=== PATIENT | female | born 1935 | race Caucasian/White ===

== ENCOUNTER 2019-01-29 09:13 | Day surgery (SDC) | payer MEDICARE ==
[2019-01-28 08:41] VITALS: BMI 20.7
[~2019-01-29 09:13] MED LIST: LACTATED RINGERS 1,000 ML IV SCH; LIDOCAINE 1% 20 ML VIAL (10MG/ML) FOR IV START INTRADERMA PRN
[2019-01-29 09:51] VITALS: TEMP 98.1
[2019-01-29 09:57] LABS: Glucose,Whole Blood 108 mg/dL (75-99)
[2019-01-29] MEDS ORDERED: LIDOCAINE 1% INJ 10MG/ML (20 ML MDV) ONE (10:21)
[2019-01-29] MEDS ORDERED: PROPOFOL 10 MG/ML 20 ML VIAL IV ONE (10:21)
--- NOTE | 2019-01-29 10:53 | P.PCN ---
Date of Procedure: 01/29/19 Procedure(s) Performed: BRIEF HISTORY: Patient is a 83-year-old pleasant female, scheduled for an elective colonoscopy as a part of evaluation of positive cologuard on recent stool testing. Her last colonoscopy was 15 years ago. PROCEDURE PERFORMED: Colonoscopy with snare polypectomy and Endo Clip placement. PREOPERATIVE DIAGNOSIS: Positive Cologuard IV sedation per Anesthesia. PROCEDURE: After informed consent was obtained, the patient, was brought into the endoscopy unit. IV sedation was administered by Anesthesia under continuous monitoring. Digital rectal examination was normal. Initially the Olympus CF-160 flexible video colonoscope was then inserted in the rectum, gradually advanced into the cecum without any difficulty. Careful examination was performed as the scope was gradually being withdrawn. Ileocecal valve and the appendiceal orifice were visualized and appeared normal. Prep was excellent. Mucosa of the cecum appeared normal. Regular with a 2 polyps measuring 1 cm in size both of which were broad-based removed by snare polypectomy. Rest of the ascending colon, transverse colon appeared normal. In the proximal descending colon at 50 cm from the anal verge there was a 2 cm flat polyp that was removed by piecemeal snare polypectomy followed by Endo Clip placement. Rest of the, descending colon, sigmoid colon, and rectum appeared normal. Scattered sigmoid diverticulosis. Retroflexion was performed in the rectum and no lesions were seen. The patient tolerated the procedure well. IMPRESSION: 1 cm broad-based ascending colon polyp status post polypectomy 2 cm flat proximal descending colon polyp status post piecemeal snare polypectomy followed by Endo Clip placement Scattered sigmoid diverticulosis. RECOMMENDATIONS: Findings of this examination were discussed with the patient as well as her family. She was advised to follow with the biopsy results. If the biopsy shows adenoma, he can have a repeat colonoscopy in 3 years..
[2019-01-29 11:00] VITALS: RESP 18
[2019-01-29 11:37] VITALS: BP 154/76; PULSE 81
== END 2019-01-29 11:37 | disposition home or self-care (01) ==
LOC: ORWHC2ENDO 09:13
PROVIDERS: ATTEND Internal Medicine Gastroenterology
DX: D12.2 Benign neoplasm of ascending colon (principal); D12.4 Benign neoplasm of descending colon; K57.30 Diverticulosis of large intestine without perforation or abscess without bleeding; E78.5 Hyperlipidemia, unspecified; E11.9 Type 2 diabetes mellitus without complications; Z86.73 Personal history of transient ischemic attack (TIA), and cerebral infarction without residual deficits; Z97.4 Presence of external hearing-aid; F17.200 Nicotine dependence, unspecified, uncomplicated; Z79.1 Long term (current) use of non-steroidal anti-inflammatories (NSAID); Z79.84 Long term (current) use of oral hypoglycemic drugs; Z79.899 Other long term (current) drug therapy
CPT/HCPCS: 45385; 88305; J2001; J2704; 45382

== ENCOUNTER 2019-07-07 21:14 | Emergency (ER) | payer MEDICARE ==
[2019-07-07 21:23] VITALS: RESP 18
[2019-07-07] MEDS ORDERED: ASPIRIN 81 MG PO STA (21:39)
[2019-07-07] MEDS ORDERED: SODIUM CHLORIDE 0.9% 1,000 ML IV STA (21:39)
[2019-07-07 22:10] LABS: Basophils # (A) 0.1 k/uL (0-0.2); Basophils % (A) 1 %; Eosinophils # (A) 0.3 k/uL (0-0.7); Eosinophils % (A) 4 %; HCT 35.8 % (34.0-46.0); HGB 11.5 gm/dL (11.4-16.0); Lymphocytes # (A) 2.9 k/uL (1.0-4.8); Lymphocytes % (A) 34 %; MCH 29.1 pg (25.0-35.0); MCHC 32.2 g/dL (31.0-37.0); MCV 90.3 fL (80.0-100.0); Mean Platelet Volume 6.6; Monocytes # (A) 0.5 k/uL (0-1.0); Monocytes % (A) 6 %; Neutrophils # (A) 4.5 k/uL (1.3-7.7); Neutrophils % (A) 54 %; Platelet Count 308 k/uL (150-450); RBC 3.97 m/uL (3.80-5.40); RDW 13.9 % (11.5-15.5); WBC 8.4 k/uL (3.8-10.6)
[2019-07-07 22:21] LABS: Partial Thromboplastin Time 23.9 sec (22.0-30.0); Prothrombin Time 10.6 sec (9.0-12.0)
[2019-07-07 22:23] LABS: Albumin 4.3 g/dL (3.5-5.0); Magnesium 1.9 mg/dL (1.6-2.3); Potassium 4.5 mmol/L (3.5-5.1); Total Bilirubin 0.3 mg/dL (0.2-1.3); Total Protein 7.1 g/dL (6.3-8.2)
--- NOTE | 2019-07-07 22:40 | XR ---
EXAMINATION TYPE: XR chest 2V DATE OF EXAM: 07/07/2019 COMPARISON: NONE HISTORY: Chest pain TECHNIQUE: Frontal and lateral views of the chest are obtained. FINDINGS: Heart is normal. Lungs are clear of infiltrate. Thoracic aorta is atheromatous. There are chest leads. Costophrenic angles are clear. Bony thorax is intact. IMPRESSION: No active cardiopulmonary disease. Atheromatous aorta.
--- NOTE | 2019-07-07 22:47 | ED ---
Chest Pain HPI - General Chief Complaint: Chest Pain Stated Complaint: Chest Pain Time Seen by Provider: 07/07/19 21:39 Source: patient Mode of arrival: wheelchair Limitations: no limitations - History of Present Illness Initial Comments: Christine is a pleasant 83-year-old female with no history of coronary artery disease, patient does have a history of aortic stenosis. Patient has followed with her primary care and Dr. Nugent cardiology for this in the past. Patient was seen by her primary care physician yesterday. Patient reports that he palpated her chest and told her that if she experienced any chest pain she needed to come to the emergency department. Patient reports she's intermittently experience chest pain for a long period of time but never thought anything of it however this afternoon she had some sharp pains in her right side of her chest, she thinks it may be from her exam yesterday. However after that she had some sharp pains on the left side of her chest and the lateral ribs. These pains came and went resolved around 6:30 PM. The patient contacted her daughter who had to drive from nearly an hour away to see the patient and then brought her to the ER. Upon arrival patient is chest pain-free. Patient denies any exertional symptoms, lightheadedness or palpitations. Patient does admit that she did a lot of laundry was carrying laundry baskets today. In addition the patient does participate in a golf lead as well as a bowling league. She reports she is able to golf and playful rounds of bowling without any chest pain typically. - Related Data Home Medications Medication Instructions Recorded Confirmed Cetirizine HCl [Zyrtec] 10 mg PO DAILY 01/02/18 01/29/19 Cholecalciferol (Vitamin D3) 2,000 unit PO DAILY 01/02/18 01/29/19 [Vitamin D3] Simvastatin [Zocor] 20 mg PO HS 01/02/18 01/29/19 metFORMIN HCL [Glucophage Xr] 500 mg PO DAILY 01/02/18 01/29/19 Naproxen Sodium [Aleve] 220 mg PO DIRECTED PRN 01/28/19 01/29/19 Vit C/E/Zn/Coppr/Lutein/Zeaxan 1 each PO DAILY 01/28/19 01/29/19 [Preservision Areds 2 Softgel] Wheat Dextrin [Benefiber] 1 each PO DIRECTED 01/28/19 01/29/19 Allergies Allergy/AdvReac Type Severity Reaction Status Date / Time No Known Allergies Allergy Verified 07/07/19 21:23 Review of Systems ROS Statement: Those systems with pertinent positive or pertinent negative responses have been documented in the HPI. ROS Other: All systems not noted in ROS Statement are negative. EKG Findings - EKG Comments: EKG Findings:: EKG was obtained due to complaint of chest pain, EKG was obtained at 2131, rate is 87 rhythm is sinus there is normal axis, there are normal intervals, NM 138, QRS 72, QTc is 440. There are no acute ST elevations or depressions of acute ischemia or infarction. Past Medical History Past Medical History: Cancer, Diabetes Mellitus, Hyperlipidemia Additional Past Medical History / Comment(s): HEART MURMUR, CALCIFIED HEART VALVE., STOOL TEST POSITIVE FOR BLOOD., HX OF SKIN CANCER, TIA. History of Any Multi-Drug Resistant Organisms: None Reported Past Surgical History: Appendectomy, Tonsillectomy Additional Past Surgical History / Comment(s): Wesley Cataract surgery Past Anesthesia/Blood Transfusion Reactions: No Reported Reaction Past Psychological History: No Psychological Hx Reported Smoking Status: Current every day smoker Past Alcohol Use History: None Reported Past Drug Use History: None Reported - Past Family History Mother Family Medical History: Congestive Heart Failure (CHF) Father Family Medical History: CVA/TIA Sister(s) Family Medical History: Cancer, Diabetes Mellitus, Rheumatoid Arthritis (RA) Additional Family Medical History / Comment(s): PACEMAKER, STENTS, CLL, RUPTURED ANEURYSM General Exam - General Exam Comments Initial Comments: Physical Exam GENERAL: Patient is well-developed and well-nourished. Patient is nontoxic and well- hydrated and is in no distress. HENT: Normocephalic, Atraumatic. EYES: PERRL, EOMI PULMONARY: Unlabored respirations. No audible rales rhonchi or wheezing was noted. CARDIOVASCULAR: RRR Blowing holosystolic murmur consistent with aortic stenosis ABDOMEN: Soft and nontender with normal bowel sounds. SKIN: Skin is clear with no lesions or rashes and otherwise unremarkable. : Deferred NEUROLOGIC: Patient is alert and oriented x3. Moving all extremities spontaneously MUSCULOSKELETAL: Normal extremities with adequate strength and full range of motion. No lower extremity swelling or edema. No calf tenderness. PSYCHIATRIC: Normal psychiatric evaluation. Limitations: no limitations Course Vital Signs 07/07/19 07/07/19 07/07/19 21:19 22:12 23:25 Temperature 97.8 F 98 F 98.6 F Pulse Rate 88 85 70 Respiratory 18 18 18 Rate Blood Pressure 149/64 157/61 146/54 O2 Sat by Pulse 96 99 98 Oximetry Chest Pain MDM - MDM The patient is a very healthy and active 83-year-old female with no known cardiac history. Patient had her annual physical with her primary care physician yesterday who encouraged her to come to the ER any time she experiences chest pain. Patient reports that during that exam he did palpate he r chest and applied pressure to her chest telling her that if she was having a heart attack could feel like deep pressure. Patient states that today she felt like his chest might just be a little bit sore from that. She isn't short chains in the right side of her chest earlier and called her daughter. Patient had been doing some heavy lifting including laundry basket and did make her bed. Pain was not exertional, it did not relieve with rest. Pain was not associated with any diaphoresis, lightheadedness or shortness of breath. Pain resolved prior to arrival in the emergency department however given that her primary care physician told her to be evaluated for any chest pain she decided to come to the ER. Exam the patient appears quite well she is in absolutely no distress she's not c omplaining of any pain. Vital signs are within normal limits. Her obtained and were within normal limits. Patient's chest pain had resolved 3 hours prior to arrival and her troponin remains not elevated. At this time I do not feel that repeat troponin is indicated. I offered to keep the patient in observation unit be evaluated by cardiology, considering the patient's advanced age, however chris tam would like to refuse. Patient states that she is scheduled to see her primary care physician again tomorrow because she needs get a flu shot. Told to see her clinical nursing professor in 3 weeks. Patient will discussed with her primary care physician tomorrow she needs to be seen sooner. All questions pertaining care were answered, close return parameters were discussed. Patient was discharged home in stable condition. Disposition Clinical Impression: Atypical chest pain Disposition: HOME SELF-CARE Condition: Stable Instructions (If sedation given, give patient instructions): Costochondritis (ED) Is patient prescribed a controlled substance at d/c from ED?: No Referrals: Efrain Vargas MD [Primary Care Provider] - 1-2 days
[2019-07-07 23:26] VITALS: BP 146/54; PULSE 70; TEMP 98.6
== END 2019-07-07 23:28 | disposition home or self-care (01) ==
LOC: EC 21:14
DX: R07.89 Other chest pain (principal); R01.1 Cardiac murmur, unspecified; E11.9 Type 2 diabetes mellitus without complications; E78.5 Hyperlipidemia, unspecified; F17.200 Nicotine dependence, unspecified, uncomplicated; Z79.84 Long term (current) use of oral hypoglycemic drugs; Z79.899 Other long term (current) drug therapy; Z85.828 Personal history of other malignant neoplasm of skin; Z82.49 Family history of ischemic heart disease and other diseases of the circulatory system
CPT/HCPCS: 36415; 71046; 80053; 83735; 83880; 84484; 85025; 85610; 85730; 93005; 96360; 99285

== ENCOUNTER → 2020-04-28 | Day surgery (SDC) | payer MEDICARE ==
[2020-04-25 13:38] VITALS: BMI 23.0
[~2020-04-28] MED LIST changes: +ALPRAZolam 0.25 MG TAB PO PRN; +ALPRAZolam 0.5 MG TAB PO PRN; +ASPIRIN 325 MG TAB PO ONE; +ATORVASTATIN 80 MG TAB PO ONE; +BENZOCAINE SPRAY 1 CAN TOPICAL ONE; +IOPAMIDOL-370 125ML BTL INJ ONE; +IV FLUID CONTINUATION 1,000 ML IV ONE; -LACTATED RINGERS 1,000 ML IV SCH; -LIDOCAINE 1% 20 ML VIAL (10MG/ML) FOR IV START INTRADERMA PRN; +LIDOCAINE 1% INJ 10MG/ML (20 ML MDV) SQ ONE; +MIDAZOLAM 2 MG/2 ML VIAL IV ONE; +NITROGLYCERIN SL TABS 0.4 MG TAB SUBLINGUAL PRN; +RX INFO: IV CONTRAST WAS GIVEN 1 EACH MISC MISCELLANE PRN; +SODIUM CHLORIDE 0.9% 1,000 ML IV SCH; +SODIUM CHLORIDE 0.9% 1,000 ML in EMPTY BAG 1 BAG IV ONE; +fentaNYL (PF) 50 MCG/ML 2 ML AMP IV ONE; +fentaNYL (PF) 50 MCG/ML 2 ML AMP ONE
[2020-04-28 07:56] LABS: Glucose,Whole Blood 126 mg/dL (75-99)
[2020-04-28 08:05] VITALS: TEMP 98.3
[2020-04-28 11:45] VITALS: RESP 15
--- NOTE | 2020-04-28 12:22 | ECHOT ---
TRANSESOPHAGEAL ECHOCARDIOGRAM INDICATION: Symptomatic aortic stenosis. PROCEDURE NOTE: After obtaining informed consent, transesophageal echocardiogram was performed in left lateral position using an Omni plane probe. Local and IV sedation were obtained with 2 mg of Versed and 25 mcg of fentanyl. We did 2D color and Doppler evaluation. The patient received moderate conscious sedation and total sedation time was 10 minutes. FINDINGS: 1. Aortic valve is a 3-leaflet valve, appears heavily calcified with severe restriction in leaflet mobility. Calculated valve area with planimetry is about 0.6 cm2. There is mild to moderate aortic regurgitation noted. 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 The left atrium appears enlarged. Right atrium, right ventricle exam within normal limits. Interatrial septum shows there is no evidence of ykel-mo-tizhq shunt by color-flow Doppler or asyuv-md-kibh shunt by agitated saline contrast study. 2. Left ventricle has normal size and systolic function. 3. Aorta shows wetp-mh-yacykqcd atherosclerotic changes. 4. Ascending aorta measures 2.6 cm. CONCLUSION: 1. Severe aortic stenosis involving a heavily calcified 3 leaflet aortic valve. 2. Moderate central mitral regurgitation. 3. Normal LV function. PLAN: Patient will undergo cardiac catheterization and will be referred to the cardiothoracic surgeon. MMODL / IJN: [id number] /
--- NOTE | 2020-04-28 12:52 | CC ---
CARDIAC CATHETERIZATION REPORT INDICATION: Symptomatic valvular heart disease. PROCEDURE NOTE: After obtaining informed consent, left heart catheterization and coronary angiogram are performed via the right femoral artery using standard Jenny catheters. Patient tolerated the procedure well without any obvious immediate complications. A femoral angiogram was performed and Angio-Seal was deployed for hemostasis. Patient received moderate conscious sedation. Total sedation time was 20 minutes. FINDINGS: HEMODYNAMICS: Left ventricular end-diastolic pressure is 12-14 mm. There was a gradient of 40 mm across the valve. LEFT VENTRICULOGRAM: Left ventriculogram is not performed. ANGIOGRAPHIC DATA LEFT MAIN CORONARY ARTERY: Left main coronary artery appears calcified but is free of significant stenosis. Divides into left anterior descending coronary artery and circumflex coronary artery. Circumflex coronary artery and its branches are free of significant stenosis. Mid LAD shows a focal 80% stenosis that involves the diagonal branch. RIGHT CORONARY ARTERY: Right coronary artery is a large dominant vessel that shows mild nonobstructive disease. CONCLUSION: 1. An 80% mid LAD stenosis. 2. Severe aortic stenosis by [place]. 3. Moderate mitral regurgitation. PLAN: I will refer the patient to Dr. Winters for aortic valve replacement, mitral valve repair with bypass of the LAD and diagonal. Will set up an appointment to see him on next Friday. Patient has anemia with hemoglobin of 9.3. I will have her follow up with Dr. Vargas, her primary care physician. MMODL / IJN: [id number] /
--- NOTE | 2020-04-28 12:54 | LTR ---
DATE OF SERVICE: 04/28/2020 RE: Christine Uribe Dear Dr. Vargas; I performed [place] and cardiac catheterization on Christine Gaylemehdi, the detailed catheterization note will be forwarded for your records. In brief, the cardiac catheterization reveals single-vessel CAD. The patient had severe aortic stenosis and moderate mitral regurgitation. I am going to refer her to Dr. Winters for aortic valve replacement, possible mitral valve repair and single-vessel CABG. Thank you for giving me the privilege to participate in the care of this pleasant lady. Sincerely, MD AHSAN Gruber / ANDRE: [id number] /
[2020-04-28 16:56] VITALS: BP 151/65; PULSE 78
== END ==
LOC: CATHCVL 07:31
PROVIDERS: ATTEND Internal Medicine Cardiovascular Disease
DX: I25.10 Atherosclerotic heart disease of native coronary artery without angina pectoris (principal); I08.0 Rheumatic disorders of both mitral and aortic valves; E11.9 Type 2 diabetes mellitus without complications; E78.2 Mixed hyperlipidemia; D64.9 Anemia, unspecified; Z79.84 Long term (current) use of oral hypoglycemic drugs; Z79.899 Other long term (current) drug therapy; Z86.73 Personal history of transient ischemic attack (TIA), and cerebral infarction without residual deficits
CPT/HCPCS: 93312; 93320; 93325; 93458; C1769 ×2; C1760; C1894; J2250; J2001; J3010; Q9967

== ENCOUNTER 2020-05-19 05:59 | Day surgery (SDC) | payer MEDICARE ==
[2020-05-17 15:51] VITALS: BMI 22.8
[2020-05-19] MEDS ORDERED: NITROGLYCERIN SL TABS 0.4 MG TAB SUBLINGUAL PRN ×2 (06:00→08:43)
[2020-05-19] MEDS ORDERED: ALPRAZolam 0.5 MG TAB PO PRN (06:00)
[2020-05-19] MEDS ORDERED: ALPRAZolam 0.25 MG TAB PO PRN (06:00)
[2020-05-19] MEDS ORDERED: ASPIRIN 325 MG TAB PO STA (06:00)
[2020-05-19] MEDS ORDERED: SODIUM CHLORIDE 0.9% 1,000 ML in EMPTY BAG 1 BAG IV ONE (06:00)
[2020-05-19] MEDS: SODIUM CHLORIDE 0.9% 1,000 ML IV SCH ×2 (06:20→15:47)
[2020-05-19 06:26] LABS: Glucose,Whole Blood 138 mg/dL (75-99)
[2020-05-19] MEDS ORDERED: fentaNYL (PF) 50 MCG/ML 2 ML AMP IV ONE (07:44)
[2020-05-19] MEDS ORDERED: LIDOCAINE 1% INJ 10MG/ML (20 ML MDV) SQ ONE (07:47)
[2020-05-19] MEDS ORDERED: MIDAZOLAM 2 MG/2 ML VIAL IV ONE (07:48)
[2020-05-19] MEDS ORDERED: VERAPAMIL SYRINGE (5 MG/10 ML) INTRAARTER ONE (07:49)
[2020-05-19] MEDS ORDERED: BIVALIRUDIN BOLUS 250 MG/50 ML IV ONE (07:55)
[2020-05-19] MEDS ORDERED: BIVALIRUDIN 250 MG in SODIUM CHLORIDE 0.9% 50 ML IV ONE (07:56)
[2020-05-19] MEDS ORDERED: CLOPIDOGREL 75 MG TAB PO ONE (07:58)
[2020-05-19] MEDS ORDERED: NITROGLYCERIN 1000MCG/10ML SYRINGE INTRACORON ONE (08:09)
[2020-05-19] MEDS ORDERED: IOPAMIDOL-370 125ML BTL INJ ONE (08:14)
[2020-05-19] MEDS ORDERED: MAG HYDROX/AL HYDROX/SIMETH 30 ML CUP PO PRN (08:43)
[2020-05-19] MEDS ORDERED: ZOLPIDEM 5 MG TAB PO PRN (08:43)
[2020-05-19] MEDS ORDERED: RX INFO: IV CONTRAST WAS GIVEN 1 EACH MISC MISCELLANE PRN (08:43)
[2020-05-19] MEDS ORDERED: ATROPINE SULFATE 0.1 MG/ML 10ML SYRINGE IV PRN (08:43)
[2020-05-19] MEDS ORDERED: SODIUM CHLORIDE 0.9% 1,000 ML IV SCH (08:45)
--- NOTE | 2020-05-19 11:03 | CC ---
CARDIAC CATHETERIZATION REPORT Mrs. Uribe is an 84-year-old female who is followed by Dr. Nugent, was found to have significant aortic stenosis and her cardiac catheterization revealed significant stenosis in the mid LAD at the takeoff of a diagonal branch. Recommendation made regarding angioplasty and stenting of the LAD and subsequent TAVR for the aortic valve. The procedure, its risks and complications were discussed with the patient who is in full understanding and agreement. PROCEDURE: Patient was brought to record label intern in a fasting semi-sedated state after receiving fentanyl and Benadryl and achieving moderate conscious sedated state. Using Xylocaine anesthesia and Seldinger technique, a 6-Afghan sheath was introduced in the right radial artery, selective left coronary angiography was performed using 6-Afghan FL3.5 guiding catheter. After cannulating the left main, a 0.014 balanced medium weight J- wire was advanced across the lesion, positioned in the distal LAD. Then a 2.5 x 12 mm NC Emerge balloon was advanced and one inflation at 12 atmospheres was done. Following that, the balloon was removed and a 3.0 x 15 mm Xience Danelle stent was deployed post dilated to 16 atmospheres. Following that, the balloon was removed and a 2.75 x 12 mm Xience Danelle stent was deployed distal to the first one, postdilated at 16 atmospheres. Following that, the balloon was removed and a 3.5 x 12 mm NC Trek balloon was advanced and an inflation of proximal segment of the first stent was done at 12 atmospheres. After the last inflation, after appropriate wait, the balloon and the guidewire were withdrawn back in the guiding catheter. Images were obtained and repeated. Those images reveal stable successful stenting. At that point, the guiding catheter, the balloon and the guidewire were removed. The sheath was removed, hemostasis was obtained with deployment of a TR band. There was no immediate complication. Patient is returned to her room in stable condition. Of note, the patient received oral loading dose of clopidogrel as well as Angiomax per protocol. She had no chest discomfort but had EKG changes that resolved at the end of the procedure. RESULTS: Successful stenting of the mid LAD with reduction of stenosis from 80% to 0%. RECOMMENDATION: Patient will be continued on aspirin, Plavix and a statin. The importance of dual antiplatelet treatment were discussed with the patient who is in full understanding and agreement. She will proceed at a later time to undergo TAVR. Duration of sedation is 38 minutes. AHSAN / IJN: [id number] / MIAN
--- NOTE | 2020-05-19 11:09 | LTR ---
DATE OF SERVICE: 05/19/2020 RE: Christine Uribe Dear Dr. Vargas; I had the pleasure to perform coronary angioplasty and stenting on Mrs. Uribe at [facility] on May 19, 2020 and a full copy of the procedure note will be forwarded to you. In brief, she underwent successful stenting of her mid LAD. I am hopeful this procedure will stabilized her status and thank you again for allowing me to participate in this patient' personal care. Please feel free to call for any questions. Sincerely, MD AHSAN Levi / MEGHANN: [id number] /
[2020-05-19 13:10] LABS: Glucose,Whole Blood 106 mg/dL (75-99)
[2020-05-19] MEDS: METOPROLOL TARTRATE 25 MG TAB PO SCH ×2 (15:49→21:07)
[2020-05-19 20:50] LABS: Glucose,Whole Blood 159 mg/dL (75-99)
[2020-05-20] MEDS: SODIUM CHLORIDE 0.9% 1,000 ML IV SCH (04:32)
[2020-05-20 05:20] VITALS: TEMP 98.1
[2020-05-20 06:42] LABS: Glucose,Whole Blood 114 mg/dL (75-99)
[2020-05-20 08:13] VITALS: BP 141/57; PULSE 89; RESP 18
[2020-05-20 08:30] LABS: Calcium 8.7 mg/dL (8.4-10.2); Potassium 4.5 mmol/L (3.5-5.1)
[2020-05-20] MEDS: METOPROLOL TARTRATE 25 MG TAB PO SCH (08:50)
[2020-05-20] MEDS ORDERED: ATORVASTATIN 40 MG TAB PO SCH (09:00)
[2020-05-20] MEDS ORDERED: CLOPIDOGREL 75 MG TAB PO SCH (09:00)
[2020-05-20] MEDS ORDERED: ASPIRIN 81 MG PO SCH (09:00)
--- NOTE | 2020-05-20 09:25 | PN ---
PROGRESS NOTE Mrs. Uribe is an 84-year-old female with known history of coronary artery disease, history of hyperlipidemia, diabetes mellitus, as well as a history of severe aortic stenosis, who has been followed by Dr. Nugent. Was found to have significant obstructive disease in the LAD, underwent stenting of that vessel yesterday. She is doing well. She denies any chest pain. No dizziness. No palpitation. No nausea. She is walking. MEDICATIONS: She continues to be on aspirin once a day, Lipitor 40 mg daily, Plavix 75 mg daily, metoprolol tartrate 25 mg twice a day. PHYSICAL EXAMINATION: Blood pressure running in the 120s to 140s with a heart rate in the 80s. LUNGS: Clear. HEART: Regular rhythm S1, S2. No S3 with systolic murmur, 3/6, late peaking. No diastolic murmur. ABDOMEN: Soft nontender. EXTREMITIES: No edema. Right radial pulse intact. EKG revealed no acute changes. LAB DATA: Revealed BUN and creatinine 20 and 0.9, potassium 4.5. IMPRESSION: 1. Status post stenting of the left anterior descending. 2. Severe aortic stenosis. 3. Hyperlipidemia. 4. Diabetes mellitus. RECOMMENDATION: Patient will be discharged home today. Follow up with Dr. Nugent next week and being evaluated for TAVR. MMODL / IJN: [id number] /
== END 2020-05-20 10:20 | disposition home or self-care (01) ==
LOC: EDSEX → CATHCVL 05:59 → MERGE 07:30 → 3NCARDOBS 08:46 → CATHCVL 05-20 10:20
PROVIDERS: ATTEND Internal Medicine Interventional Cardiology
DX: I25.10 Atherosclerotic heart disease of native coronary artery without angina pectoris (principal); I35.0 Nonrheumatic aortic (valve) stenosis; E11.9 Type 2 diabetes mellitus without complications; E78.5 Hyperlipidemia, unspecified; Z95.5 Presence of coronary angioplasty implant and graft; Z95.4 Presence of other heart-valve replacement; Z79.82 Long term (current) use of aspirin; Z79.02 Long term (current) use of antithrombotics/antiplatelets; Z79.899 Other long term (current) drug therapy
CPT/HCPCS: 85347; 80048; C9600; C1769 ×2; C1887; C1725 ×2; C1874; C1894; J2250; J2001; J3010; J0583; Q9967

== ENCOUNTER 2020-06-21 07:54 | Day surgery (SDC) | payer MEDICARE ==
[2020-06-20 10:18] VITALS: BMI 23.2
[~2020-06-21 07:54] MED LIST changes: -ALPRAZolam 0.25 MG TAB PO PRN; -ALPRAZolam 0.5 MG TAB PO PRN; -ASPIRIN 325 MG TAB PO ONE; -ATORVASTATIN 80 MG TAB PO ONE; -BENZOCAINE SPRAY 1 CAN TOPICAL ONE; -IOPAMIDOL-370 125ML BTL INJ ONE; -IV FLUID CONTINUATION 1,000 ML IV ONE; +LACTATED RINGERS 1,000 ML IV SCH; -LIDOCAINE 1% INJ 10MG/ML (20 ML MDV) SQ ONE; -MIDAZOLAM 2 MG/2 ML VIAL IV ONE; -NITROGLYCERIN SL TABS 0.4 MG TAB SUBLINGUAL PRN; -RX INFO: IV CONTRAST WAS GIVEN 1 EACH MISC MISCELLANE PRN; -SODIUM CHLORIDE 0.9% 1,000 ML IV SCH; -SODIUM CHLORIDE 0.9% 1,000 ML in EMPTY BAG 1 BAG IV ONE; -fentaNYL (PF) 50 MCG/ML 2 ML AMP IV ONE; -fentaNYL (PF) 50 MCG/ML 2 ML AMP ONE
[2020-06-21 08:49] VITALS: TEMP 98.1
[2020-06-21 08:54] LABS: Glucose,Whole Blood 107 mg/dL (75-99)
[2020-06-21] MEDS ORDERED: LIDOCAINE 1% INJ 10MG/ML (20 ML MDV) ONE (09:32)
[2020-06-21] MEDS ORDERED: PROPOFOL 10 MG/ML 20 ML VIAL IV ONE (09:32)
--- NOTE | 2020-06-21 09:49 | P.PCN ---
Date of Procedure: 06/21/20 Procedure(s) Performed: BRIEF HISTORY: Patient is a 84-year-old, pleasant, white female scheduled for an upper endoscopy as a part of evaluation of severe symptomatic iron deficiency anemia with a hemoglobin of 7.3 g/dL. Patient has been on aspirin and Plavix the last 3 months for history of coronary artery disease and stent placement. She is scheduled for an eye valve replacement as a part of the of evaluation was noted to have severe anemia with hemoglobin of 7.3 g/dL and hence the procedure was done. She denies any GI symptoms. She reports no active bleeding. She had a colonoscopy in January 2019 and was noted to have 2 polyps that were removed. She denies any recent NSAID use. He scheduled for an upper endoscopy to evaluate for severe iron deficiency. PROCEDURE PERFORMED: Esophagogastroduodenoscopy with Endo Clip placement. PREOPERATIVE DIAGNOSIS: Severe iron deficiency. IV sedation per anesthesia. PROCEDURE: After informed consent was obtained, the patient was brought into the endoscopy unit. IV sedation was administered by Anesthesia under continuous monitoring. Initially the Olympus GIF-140 video endoscope was inserted into the mouth. Esophagus intubated without any difficulty. It was gradually advanced into the stomach and duodenum and carefully examined. The bulb of the duodenum appeared normal. The second part of the duodenum there was an actively oozing arteriovenous malformation identified measuring about 5-6 mm in size. Because the patient is on aspirin and Plavix I proceeded with Endo Clip placement. 2 clips was placed and adequate hemostasis was achieved. The scope at this time was withdrawn to the stomach, adequately insufflated with air, and upon careful examination, mucosa of the antrum, body, cardia and the fundus appeared normal. The scope was then withdrawn into the esophagus. The GE junction was located at 39 cm from the incisors. Small sliding type hiatal hernia noted. The esophagus appeared normal. There were no erosions or ulcerations seen and the patient tolerated the procedure well. IMPRESSION: 1. 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 Small hiatal hernia. RECOMMENDATIONS: The findings of this examination were discussed with the patient as well as a family. She'll be scheduled for a small bowel capsule endoscopy to evaluate the rest of the small bowel. In the meantime she will continue with aspirin and Plavix. She was advised to start iron supplements twice daily and monitor CBC on a frequent basis. She will be seen in office in 2 weeks.
[2020-06-21 10:13] VITALS: BP 125/78; PULSE 78; RESP 18
== END 2020-06-21 10:52 | disposition home or self-care (01) ==
LOC: ORWHC2ENDO 07:54
PROVIDERS: ATTEND Internal Medicine Gastroenterology
DX: Q27.33 Arteriovenous malformation of digestive system vessel (principal); K44.9 Diaphragmatic hernia without obstruction or gangrene; D50.9 Iron deficiency anemia, unspecified; E11.9 Type 2 diabetes mellitus without complications; I25.10 Atherosclerotic heart disease of native coronary artery without angina pectoris; I10 Essential (primary) hypertension; E78.5 Hyperlipidemia, unspecified; I35.0 Nonrheumatic aortic (valve) stenosis; Z79.82 Long term (current) use of aspirin; Z79.02 Long term (current) use of antithrombotics/antiplatelets; Z95.5 Presence of coronary angioplasty implant and graft; Z79.899 Other long term (current) drug therapy; Z87.891 Personal history of nicotine dependence; Z79.84 Long term (current) use of oral hypoglycemic drugs; Z90.49 Acquired absence of other specified parts of digestive tract; Z90.89 Acquired absence of other organs; F41.9 Anxiety disorder, unspecified; Z86.010 Personal history of colon polyps; Z98.890 Other specified postprocedural states
CPT/HCPCS: 43255; J2001; J2704

== ENCOUNTER → 2020-06-23 | Day surgery (SDC) | payer MEDICARE ==
[2020-06-22 11:05] VITALS: BMI 23.2
[~2020-06-23] MED LIST changes: -LACTATED RINGERS 1,000 ML IV SCH; +SIMETHICONE 40 MG/0.6 ML DROPS 2,000 MG/30 ML BOTTLE PO ONE
[2020-06-23 07:18] VITALS: BP 133/61; PULSE 91; RESP 16; TEMP 98.3
[2020-06-23 07:27] LABS: Glucose,Whole Blood 144 mg/dL (75-99)
== END ==
LOC: ORWHC2ENDO 07:00
PROVIDERS: ATTEND Internal Medicine Gastroenterology
DX: K63.89 Other specified diseases of intestine (principal); D50.9 Iron deficiency anemia, unspecified; K92.2 Gastrointestinal hemorrhage, unspecified; Z86.010 Personal history of colon polyps; Z79.82 Long term (current) use of aspirin; Z79.02 Long term (current) use of antithrombotics/antiplatelets
CPT/HCPCS: 91110

== ENCOUNTER → 2020-09-05 | Outpatient (CLI) | payer MEDICARE ==
--- NOTE | 2020-09-05 15:14 | CT ---
EXAMINATION TYPE: CT chest wo con DATE OF EXAM: 09/05/2020 COMPARISON: None HISTORY: Lung nodule CT DLP: 399 mGycm. Automated Exposure Control for Dose Reduction was Utilized. TECHNIQUE: CT scan of the thorax is performed without IV contrast. FINDINGS: LUNGS: Within the left upper lobe laterally there is a faint nodular density measuring approximately 6 mm. Linear densities at the lung bases suggestive of scar or atelectasis. Additional 1 mm nodule in the right middle lobe on axial image 35. Changes of COPD noted with biapical pleural thickening. MEDIASTINUM: Lack of IV contrast is noted to limit evaluation for mediastinal and especially hilar ad enopathy. There are no definitive greater than 1 cm hilar or mediastinal lymph nodes. Aortic stent is noted. Cardiac leads calcification in the annulus and coronary arteries. Ascending aorta measures a maximal dimension of 3.8 cm heart mildly enlarged. OTHER: Hypertrophic and degenerative changes spine. There is findings suggestive of thyroid nodules. Cardiac device seen. Large 3 cm complicated partially calcified cystic mass involving the left lobe o f the liver. Measures 3 Hounsfield units. Recommend follow-up ultrasound IMPRESSION: 1. COPD with faint peripheral nodule in the left upper lobe measuring 6 mm. Additional right middle l obe 1 2 mm nodules seen. Recommend 6 month follow-up to confirm stability. 2. Complicated hepatic lesion recommend ultrasound. 3. Coronary artery dense calcification.
== END | disposition home or self-care (01) ==
LOC: RADCTMAIN 14:24
PROVIDERS: ATTEND Internal Medicine
DX: J44.9 Chronic obstructive pulmonary disease, unspecified (principal); I25.10 Atherosclerotic heart disease of native coronary artery without angina pectoris; R91.8 Other nonspecific abnormal finding of lung field
CPT/HCPCS: 71250

== ENCOUNTER → 2020-11-17 | Outpatient (CLI) | payer MEDICARE ==
--- NOTE | 2020-11-17 07:55 | US ---
EXAMINATION TYPE: US abdomen limited DATE OF EXAM: 11/17/2020 COMPARISON: NONE CLINICAL HISTORY: K76.89 Other specified diseases of liver. calcified lesion on liver seen on recent CT, no symptoms per patient EXAM MEASUREMENTS: Liver Length: 13.2 cm Gallbladder Wall: 0.2 cm CBD: 0.3 cm Right Kidney: 8.8 x 3.7 x 3.7 cm Pancreas: wnl Liver: 3.0 x 2.8 x 3.0cm calcified cyst Gallbladder: wnl Evidence for sonographic Mejia's sign: no CBD: wnl Right Kidney: slightly smaller in size IMPRESSION: Calcified lesion measuring 3 cm within the liver most suggestive of calcified hepatic cys t
== END | disposition home or self-care (01) ==
LOC: RADUSWWP 07:05
PROVIDERS: ATTEND Internal Medicine
DX: K76.89 Other specified diseases of liver (principal)
CPT/HCPCS: 76705

== ENCOUNTER → 2021-02-15 | Outpatient (CLI) | payer MEDICARE ==
--- NOTE | 2021-02-15 14:34 | US ---
EXAMINATION TYPE: US groin RT DATE OF EXAM: 02/15/2021 COMPARISON: NONE CLINICAL HISTORY: A. Right groin pain. Had cather in June 2020. Scanned right groin no abnormalities seen. IMPRESSION: No definite sonographic abnormality in the right groin is identified.
== END | disposition home or self-care (01) ==
LOC: RADUSWWP 13:39
PROVIDERS: ATTEND Internal Medicine
DX: R10.31 Right lower quadrant pain (principal)

== ENCOUNTER → 2021-03-28 | Outpatient (CLI) | payer MEDICARE ==
--- NOTE | 2021-03-28 11:21 | CT ---
EXAMINATION TYPE: CT chest wo con DATE OF EXAM: 03/28/2021 COMPARISON: 09/05/2020 HISTORY: 85-year-old female Known pulmonary nodule, being scheduled for valve replacement per patient . TECHNIQUE: Contiguous axial scanning of the chest without IV contrast. Coronal and sagittal reconstru ctions performed. CT DLP: 126.7 mGycm Automated exposure control for dose reduction was used. FINDINGS: Right anterior chest wall pacemaker generator with right atrial and right ventricular leads. There is a stent graft likely related to previous endovascular aortic valve replacement. Heart normal size without pericardial effusion. Ascending aorta mildly aneurysmal at 4.1 cm. Moderate atherosclerotic arch calcifications. Convention al arch vessel branching anatomy. Ectatic upper descending thoracic aorta at 3.1 cm. No thoracic lymph adenopathy by CT size criteria. Biapical pleural-parenchymal scarring. Scattered mild interstitial prominence and mild centrilobular emphysema. Tiny 3 mm peripheral right midlung pulmonary nodule, axial image 32 unchanged, benign. 7 mm nodular density inferior lingula, unchanged, axial image 36. No consolidation or pleural effusion. Tiny hiatal hernia. Visualized upper abdomen shows moderate to severe atherosclerotic calcifications infrarenal abdominal aorta. [id number] stool and scattered colonic diverticulosis. There is a c omplex cystic mass of segment IVb left lower lobe measuring 2.4 cm with septations and calcifications , relatively unchanged from . Bones: Moderate to advanced degenerative disc disease mid to lower thoracic spine and upper lumbar sp ine with grade 1 retrolisthesis L1-L2. Some increase and degenerative vacuum phenomenon lower thoraci c spine. IMPRESSION: 1. A COUPLE PULMONARY NODULES MEASURING UP TO 7 MM IN THE INFERIOR LINGULA REMAIN UNCHANGED FOR 7 MON THS. THIS SUGGESTS A BENIGN ETIOLOGY. ADDITIONAL ONE-YEAR FOLLOW-UP RECOMMENDED. 2. COMPLEX CYSTIC MASS IN SEGMENT IVB LEFT LIVER LOBE MEASURING 3.4 CM , RELATIVELY UNCHANGED FOR 7 M ONTHS. BILIARY CYSTADENOMA AND CYSTADENOCARCINOMA ARE DIFFERENTIAL CONSIDERATIONS. RELATIVE STABILITY FAVORS A BENIGN ETIOLOGY. ATTENTION ON FOLLOW-UP. CONSIDER GI/HEPATOLOGY REFERRAL FOR FUTURE SURVEIL CHIQUI . 3. COPD WITH MILD EMPHYSEMA. 4. 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
== END | disposition home or self-care (01) ==
LOC: RADCTMAIN 08:58
PROVIDERS: ATTEND Internal Medicine
DX: J43.9 Emphysema, unspecified (principal); R91.1 Solitary pulmonary nodule
CPT/HCPCS: 71250

== ENCOUNTER → 2021-04-16 | Outpatient (CLI) | payer MEDICARE ==
--- NOTE | 2021-04-16 11:53 | CT ---
EXAMINATION TYPE: CT brain wo con DATE OF EXAM: 04/16/2021 COMPARISON: None HISTORY: Cerebrovascular disease CT DLP: 1165 mGycm Automated exposure control for dose reduction was used. FINDINGS: Nasal septal deviation noted. Orbits are symmetric. No significant changes of sinusitis. Craniocervical junction maintained. Sella turcica has a normal appearance. Intracranial atherosclerotic changes noted. Mild to moderate generalized degenerative change. Low-att enuation white matter is nonspecific. No acute hemorrhage or mass effect. IMPRESSION: 1. Degenerative and nonspecific white matter changes most typical of remote ischemia.
== END | disposition home or self-care (01) ==
LOC: RADCTMAIN 10:42
PROVIDERS: ATTEND Psychiatry & Neurology Neurology
DX: I67.82 Cerebral ischemia (principal); R41.3 Other amnesia
CPT/HCPCS: 70450

== ENCOUNTER → 2021-04-20 | Outpatient (CLI) | payer MEDICARE ==
[2021-04-21 06:25] LABS: Folate, Serum 13.5 ng/mL
== END | disposition home or self-care (01) ==
LOC: LABWHC1 15:09
PROVIDERS: ATTEND Psychiatry & Neurology Neurology
DX: G62.9 Polyneuropathy, unspecified (principal); R41.3 Other amnesia
CPT/HCPCS: 36415; 82607; 82746; 84165; 84207

== ENCOUNTER 2021-10-04 13:17 | Emergency (ER) | payer MEDICARE ==
[2021-10-04 13:50] VITALS: RESP 16; TEMP 98.7
[2021-10-04] MEDS ORDERED: ONDANSETRON 4 MG/2 ML VIAL IVP STA (14:56)
[2021-10-04] MEDS ORDERED: SODIUM CHLORIDE 0.9% 500 ML 500 ML IV STA (14:56)
--- NOTE | 2021-10-04 15:27 | ED ---
General Adult HPI - General Chief complaint: Nausea/Vomiting/Diarrhea Stated complaint: Vomiting Time Seen by Provider: 10/04/21 14:56 Source: patient, RN notes reviewed Mode of arrival: ambulatory Limitations: no limitations - History of Present Illness Initial comments: This is a pleasant 85-year-old female presents emergency Department chief complaint of nausea and vomiting. Patient states that she woke this morning did not feel well states that she had a mild headache which is now resolved. Patient states that she had upset stomach did have episode of vomiting. Denies any significant diarrhea denies any melena hematochezia. Patient states that she still has some upper abdominal discomfort no chest pain or shortness of breath she is concerned that she may have some sort of illness that she supposed to see neurology tomorrow. Patient denies any focal weakness no back pain no flank pain. - Related Data Home Medications Medication Instructions Recorded Confirmed Cetirizine HCl [Zyrtec] 10 mg PO DAILY 01/02/18 06/23/20 metFORMIN HCL [Glucophage XR] 500 mg PO DAILY 01/02/18 06/23/20 Vit C/E/Zn/Coppr/Lutein/Zeaxan 2 each PO DAILY 01/28/19 06/23/20 [Preservision Areds 2 Softgel] Cholecalciferol [Vitamin D3 (25 2,000 unit PO DAILY 04/25/20 06/23/20 Mcg = 1000 Iu)] Aspirin [Adult Low Dose Aspirin EC] 81 mg PO DAILY 05/17/20 06/23/20 Ferrous Sulfate [Feosol] 325 mg PO Q48H 06/20/20 06/22/20 Propylene Glycol/Peg 400/Pf 1 dropper BOTH EYES DAILY 06/20/20 06/23/20 [Systane 0.3-0.4% Eye Drops] Previous Rx's Medication Instructions Recorded Atorvastatin [Lipitor] 40 mg PO DAILY #90 tab 05/20/20 Clopidogrel [Plavix] 75 mg PO DAILY #90 tab 05/20/20 Metoprolol Tartrate [Lopressor] 25 mg PO BID #180 tab 05/20/20 Nitroglycerin Sl Tabs [Nitrostat] 0.4 mg SUBLINGUAL Q5M PRN #25 tab 05/20/20 Nitrofurantoin Monohyd/M-Cryst 100 mg PO Q12HR #14 cap 10/04/21 [Macrobid] Allergies Allergy/AdvReac Type Severity Reaction Status Date / Time naproxen AdvReac Unknown DR Verified 10/04/21 13:50 INSTRUCTED NOT TO TAKE Review of Systems ROS Statement: Those systems with pertinent positive or pertinent negative responses have been documented in the HPI. ROS Other: All systems not noted in ROS Statement are negative. Past Medical History Past Medical History: Coronary Artery Disease (CAD), Cancer, Diabetes Mellitus, Hyperlipidemia Additional Past Medical History / Comment(s): HEART MURMUR, CALCIFIED HEART VALVE., HX OF SKIN CANCER, STOMACH ULCER (50 YRS AGO)., STATES "LOW KIDNEY FUNCTION", anemia History of Any Multi-Drug Resistant Organisms: None Reported Past Surgical History: Appendectomy, Heart Catheterization, Heart Catheterization With Stent, Tonsillectomy Additional Past Surgical History / Comment(s): Wesley Cataract surgery. cardiac stent x 2. COLONSCOPY. EGD Past Anesthesia/Blood Transfusion Reactions: No Reported Reaction Date of Last Stent Placement:: 05/19/20 Past Psychological History: Anxiety Smoking Status: Former smoker Past Alcohol Use History: None Reported Past Drug Use History: None Reported - Past Family History Mother Family Medical History: No Reported History Additional Family Medical History / Comment(s): age 64 yrs old. Father Family Medical History: CVA/TIA, Rheumatoid Arthritis (RA) Additional Family Medical History / Comment(s): CVA at age 49,2nd CVA age 52 Sister(s) Family Medical History: Cancer, Diabetes Mellitus, Rheumatoid Arthritis (RA) Additional Family Medical History / Comment(s): PACEMAKER, STENTS, CLL, RUPTURED ANEURYSM, (one sister had colon,breast,mouth [place]) General Exam Limitations: no limitations General appearance: alert, in no apparent distress Head exam: Present: atraumatic, normocephalic, normal inspection Eye exam: Present: normal appearance, PERRL, EOMI. Absent: scleral icterus, conjunctival injection, periorbital swelling ENT exam: Present: normal exam, normal oropharynx, mucous membranes moist Neck exam: Present: normal inspection, full ROM. Absent: tenderness, men ingismus, lymphadenopathy Respiratory exam: Present: normal lung sounds bilaterally. Absent: respiratory distress, wheezes, rales, rhonchi, stridor Cardiovascular Exam: Present: regular rate, normal rhythm, normal heart sounds. Absent: systolic murmur, diastolic murmur, rubs, gallop, clicks GI/Abdominal exam: Present: soft, normal bowel sounds. Absent: distended, tenderness, guarding, rebound, rigid Neurological exam: Present: alert Course Vital Signs 10/04/21 10/04/21 13:46 17:05 Temperature 98.7 F Pulse Rate 102 H 78 Respiratory 16 16 Rate Blood Pressure 99/54 122/63 O2 Sat by Pulse 98 97 Oximetry Medical Decision Making - Medical Decision Making 85-year-old female presented from for Nausea and Headache That She Had This Morning and Prior Resolved to [facility] Emergency Department. Patient Had Negative: 19 Tests, Patient Did Have Basic Lateral Revealed Moderate Leukocytosis with a White Count of 26.4. Patient Does Have Slight Evidence of Urinary Tract Infection CT of Abdomen and Pelvis Unremarkable. I Didn't for the Patient Is Results I Do Have Some Concerns Given Her Age and Her Leukocytosis Patient States She Needs to Be Discharged to Follow-Up with Neurology Tomorrow That She's Been Waiting for. She Does Understand the Risk. Patient Was Given Rocephin Be Discharged on Oral Antibiotics. - Lab Data Result diagrams: 10/04/21 15:49 10/04/21 16:09 Lab Results 10/04/21 10/04/21 10/04/21 Range/Units 13:53 15:49 15:49 WBC 26.4 H (3.8-10.6) k/uL RBC 4.41 (3.80-5.40) m/uL Hgb 12.9 (11.4-16.0) gm/dL Hct 40.0 (34.0-46.0) % MCV 90.7 (80.0-100.0) fL MCH 29.3 (25.0-35.0) pg MCHC 32.3 (31.0-37.0) g/dL RDW 14.1 (11.5-15.5) % Plt Count 291 (150-450) k/uL MPV 7.8 Neutrophils % 94 % Lymphocytes % 3 % Monocytes % 2 % Eosinophils % 1 % Basophils % 0 % Neutrophils # 24.7 H (1.3-7.7) k/uL Lymphocytes # 0.8 L (1.0-4.8) k/uL Monocytes # 0.6 (0-1.0) k/uL Eosinophils # 0.2 (0-0.7) k/uL Basophils # 0.1 (0-0.2) k/uL Manual Slide Review Performed RBC Morphology Normal Sodium (137-145) mmol/L Potassium (3.5-5.1) mmol/L Chloride (98-107) mmol/L Carbon Dioxide (22-30) mmol/L Anion Gap mmol/L BUN (7-17) mg/dL Creatinine (0.52-1.04) mg/dL Est GFR (CKD-EPI)AfAm (>60 ml/min/1.73 sqM) Est GFR (CKD-EPI)NonAf (>60 ml/min/1.73 sqM) Glucose (74-99) mg/dL Calcium (8.4-10.2) mg/dL Total Bilirubin (0.2-1.3) mg/dL AST (14-36) U/L ALT (4-34) U/L Alkaline Phosphatase (38-126) U/L Total Protein (6.3-8.2) g/dL Albumin (3.5-5.0) g/dL Amylase (30-110) U/L Lipase (23-300) U/L Urine Color Yellow Urine Appearance Cloudy H (Clear) Urine pH 5.0 (5.0-8.0) Ur Specific Fithian 1.020 (1.001-1.035) Urine Protein Trace H (Negative) Urine Glucose (UA) Negative (Negative) Urine Ketones Trace H (Negative) Urine Blood Moderate H (Negative) Urine Nitrite Negative (Negative) Urine Bilirubin Negative (Negative) Urine Urobilinogen <2.0 (<2.0) mg/dL Ur Leukocyte Esterase Moderate H (Negative) Urine RBC 12 H (0-5) /hpf Urine WBC 16 H (0-5) /hpf Ur Squamous Epith Cells 1 (0-4) /hpf Hyaline Casts 3 H (0-2) /lpf Urine Mucus Occasional H (None) /hpf Coronavirus (PCR) Not Detected (Not Detectd) 10/04/21 Range/Units 16:09 WBC (3.8-10.6) k/uL RBC (3.80-5.40) m/uL Hgb (11.4-16.0) gm/dL Hct (34.0-46.0) % MCV (80.0-100.0) fL MCH (25.0-35.0) pg MCHC (31.0-37.0) g/dL RDW (11.5-15.5) % Plt Count (150-450) k/uL MPV Neutrophils % % Lymphocytes % % Monocytes % % Eosinophils % % Basophils % % Neutrophils # (1.3-7.7) k/uL Lymphocytes # (1.0-4.8) k/uL Monocytes # (0-1.0) k/uL Eosinophils # (0-0.7) k/uL Basophils # (0-0.2) k/uL Manual Slide Review RBC Morphology Sodium 136 L (137-145) mmol/L Potassium 5.0 (3.5-5.1) mmol/L Chloride 106 (98-107) mmol/L Carbon Dioxide 21 L (22-30) mmol/L Anion Gap 9 mmol/L BUN 25 H (7-17) mg/dL Creatinine 0.96 (0.52-1.04) mg/dL Est GFR (CKD-EPI)AfAm 63 (>60 ml/min/1.73 sqM) Est GFR (CKD-EPI)NonAf 55 (>60 ml/min/1.73 sqM) Glucose 145 H (74-99) mg/dL Calcium 8.8 (8.4-10.2) mg/dL Total Bilirubin 0.9 (0.2-1.3) mg/dL AST 39 H (14-36) U/L ALT 19 (4-34) U/L Alkaline Phosphatase 58 (38-126) U/L Total Protein 7.0 (6.3-8.2) g/dL Albumin 4.0 (3.5-5.0) g/dL Amylase 37 (30-110) U/L Lipase 35 (23-300) U/L Urine Color Urine Appearance (Clear) Urine pH (5.0-8.0) Ur Specific Fithian (1.001-1.035) Urine Protein (Negative) Urine Glucose (UA) (Negative) Urine Ketones (Negative) Urine Blood (Negative) Urine Nitrite (Negative) Urine Bilirubin (Negative) Urine Urobilinogen (<2.0) mg/dL Ur Leukocyte Esterase (Negative) Urine RBC (0-5) /hpf Urine WBC (0-5) /hpf Ur Squamous Epith Cells (0-4) /hpf Hyaline Casts (0-2) /lpf Urine Mucus (None) /hpf Coronavirus (PCR) (Not Detectd) Disposition Clinical Impression: UTI (urinary tract infection) Disposition: HOME SELF-CARE Condition: Stable Instructions (If sedation given, give patient instructions): Urinary Tract Infection in Women (ED) Additional Instructions: Please return to the Emergency Department if symptoms worsen or any other concerns. Prescriptions: Nitrofurantoin Monohyd/M-Cryst [Macrobid] 100 mg PO Q12HR #14 cap Is patient prescribed a controlled substance at d/c from ED?: No Referrals: Jeniffer Lacy MD [Primary Care Provider] - 1-2 days Time of Disposition: 17:09
[2021-10-04 15:56] LABS: Appearance,Urine Cloudy (Clear); Bilirubin,Urine Negative (Negative); Blood,Urine Moderate (Negative); Color,Urine Yellow; Glucose,Urine (UA) Negative (Negative); Hyaline Casts,Urine 3 /lpf (0-2); Ketones,Urine Trace (Negative); Leukocyte Esterase,Urine Moderate (Negative); Mucus,Urine Occasional /hpf; Nitrite,Urine Negative (Negative); Protein,Urine Trace (Negative); RBC,Urine 12 /hpf (0-5); Squamous Epithelial Cell,Urine 1 /hpf (0-4); Urobilinogen,Urine <2.0 mg/dL (<2.0); WBC,Urine 16 /hpf (0-5)
[2021-10-04 16:05] LABS: Basophils # (A) 0.1 k/uL (0-0.2); Basophils % (A) 0 %; Eosinophils # (A) 0.2 k/uL (0-0.7); Eosinophils % (A) 1 %; HGB 12.9 gm/dL (11.4-16.0); Lymphocytes # (A) 0.8 k/uL (1.0-4.8); Lymphocytes % (A) 3 %; MCH 29.3 pg (25.0-35.0); MCHC 32.3 g/dL (31.0-37.0); MCV 90.7 fL (80.0-100.0); Mean Platelet Volume 7.8; Monocytes # (A) 0.6 k/uL (0-1.0); Monocytes % (A) 2 %; Neutrophils # (A) 24.7 k/uL (1.3-7.7); Neutrophils % (A) 94 %; Platelet Count 291 k/uL (150-450); RBC 4.41 m/uL (3.80-5.40); RDW 14.1 % (11.5-15.5); WBC 26.4 k/uL (3.8-10.6)
[2021-10-04 16:27] LABS: Calcium 8.8 mg/dL (8.4-10.2); Total Bilirubin 0.9 mg/dL (0.2-1.3)
[2021-10-04 16:29] LABS: RBC Morphology Normal
--- NOTE | 2021-10-04 17:00 | CT ---
EXAMINATION TYPE: CT abdomen pelvis w con DATE OF EXAM: 10/04/2021 HISTORY: Vomiting. CT DLP: 649.2mGycm Automated Exposure Control for Dose Reduction was Utilized. CONTRAST: CT scan of the abdomen and pelvis is performed with IV Contrast, patient injected with 80ml mL of Iso bob 300. COMPARISON: None. FINDINGS: LUNG BASES: Metallic stent graft and aortic root is partially imaged. There is partial imaging of rig ht-sided pacemaker leads. Surgical changes at the mitral valve is also present. LIVER/GB: There is 3.1 x 2.8 cm low dense probable cystic lesion with thin wall that has thin septa w ith areas of calcification in the wall and septal along with slightly more thickened calcification ri ght aspect. Etiology uncertain but still favored benign. Correlation with old outside imaging would b e beneficial. PANCREAS: No significant abnormality is seen. SPLEEN: No significant abnormality is seen. ADRENALS: No significant abnormality is seen. KIDNEYS: Symmetric cortical medullary uptake and excretion without hydronephrosis seen bilaterally. BOWEL: Slightly suboptimal evaluation without oral contrast. Diverticula throughout the sigmoid colo n. No CT evidence for acute diverticulitis. No suspicious small or large bowel dilatation. UTERUS/ADNEXA: Anteverted uterus. LYMPH NODES: No greater than 1cm abdominal or pelvic lymph nodes are appreciated. OSSEOUS STRUCTURES: Moderate to severe narrowing with endplate sclerosis at L4-L5 level. Grade 1 ante rolisthesis L4 on L5. Grade 1 retrolisthesis of T12 on L1 and L2 on L3 along with greater degree L1 o n L2. Moderate to severe disc space narrowing T12-L1 level with moderate to severe anterior spurring. Moderate disc space narrowing L1-L2 level with vacuum disc phenomenon. Facet arthropathy lower lumba r levels. OTHER: Moderate to severe peripheral calcified plaque in the aorta extends into branch vessels. IMPRESSION: No bowel obstruction. No acute findings are evident.
[2021-10-04 17:06] VITALS: BP 122/63; PULSE 78
[2021-10-04] MEDS ORDERED: cefTRIAXone IN SWFI 1,000 MG/10 ML SYRINGE IVP STA (17:10)
== END 2021-10-04 17:35 | disposition home or self-care (01) ==
LOC: EC 13:17
DX: N39.0 Urinary tract infection, site not specified (principal); R51.9 Headache, unspecified; E11.9 Type 2 diabetes mellitus without complications; E78.5 Hyperlipidemia, unspecified; I25.10 Atherosclerotic heart disease of native coronary artery without angina pectoris; Z88.6 Allergy status to analgesic agent; Z79.84 Long term (current) use of oral hypoglycemic drugs; Z79.82 Long term (current) use of aspirin; Z20.822 Contact with and (suspected) exposure to COVID-19; Z87.891 Personal history of nicotine dependence; Z79.899 Other long term (current) drug therapy
CPT/HCPCS: 36415; 80053; 82150; 83690; 85025; 81001; 87086; 87635; 74177; 99284; 96374; 96375; 96361; J2405; J0696; Q9967

== ENCOUNTER → 2021-10-17 | Outpatient (CLI) | payer MEDICARE ==
--- NOTE | 2021-10-17 21:18 | CT ---
EXAMINATION TYPE: CT angio head DATE OF EXAM: 10/17/2021 INDICATION: confusion, aneurysm CT DLP: 2020.1 mGy.cm Automated Exposure Control for Dose Reduction was Utilized. TECHNIQUE AND CONTRAST: CT scan of the head is performed without and with IV Contrast, with CTA of the intracranial arteries, patient injected with 80cc mL of Isovue 370. MIP and 3-D images were performed and reviewed. COMPARISON: CT dated 04/16/2021 FINDINGS: Bilateral cerebral white matter hypodensities likely representing chronic microvascular ischemic bosch ges. Generalized brain volume loss changes, likely age-related. Scattered arterial atherosclerotic ca lcifications. No acute intracranial hemorrhage or gross acute cortical infarct. No midline shift or herniation. Unr emarkable basal cisterns, sella and CP angles. No gross space-occupying lesion, vasogenic edema or ma ss effect. No abnormal intracranial enhancement. Small right vertebral artery ending as a right-sided PICA. 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 Focal fusiform ectas ia of the cavernous portion of the left internal carotid artery measuring up to 6 mm. Slightly increa sed craniocaudal dimension of the anterior aspect of the vein of James, probably insignificant. Otherwise normal caliber and enhancement of the intracranial arteries without significant stenosis, o cclusion, dissection, aneurysm or AV malformation. No gross orbital abnormality. Clear visualized paranasal sinuses. Sclerotic changes of the inferior a spects of the mastoid air cells. Osteopenia. IMPRESSION: Brain volume loss changes and chronic microvascular ischemic changes. No intracranial abnormal enhanc ement. No definite size-significant intracranial aneurysm or AV malformation identified. Incidental f indings as described above.
== END | disposition home or self-care (01) ==
LOC: RADCTMAIN 13:46
PROVIDERS: ATTEND Psychiatry & Neurology Neurology
DX: I67.1 Cerebral aneurysm, nonruptured (principal)
CPT/HCPCS: 82565; 84520; 70496; 36415; Q9967

== ENCOUNTER → 2022-01-22 | Outpatient (CLI) | payer MEDICARE ==
[2022-01-22 16:57] LABS: Basophils # (A) 0.1 k/uL (0-0.2); Basophils % (A) 1 %; Eosinophils # (A) 0.3 k/uL (0-0.7); Eosinophils % (A) 3 %; HCT 38.5 % (34.0-46.0); HGB 12.2 gm/dL (11.4-16.0); Hypochromasia Slight; Lymphocytes # (A) 2.2 k/uL (1.0-4.8); Lymphocytes % (A) 25 %; MCH 29.4 pg (25.0-35.0); MCHC 31.8 g/dL (31.0-37.0); MCV 92.5 fL (80.0-100.0); Mean Platelet Volume 8.1; Monocytes # (A) 0.5 k/uL (0-1.0); Monocytes % (A) 5 %; Neutrophils # (A) 5.5 k/uL (1.3-7.7); Neutrophils % (A) 64 %; Platelet Count 292 k/uL (150-450); RBC 4.16 m/uL (3.80-5.40); RDW 14.2 % (11.5-15.5); WBC 8.7 k/uL (3.8-10.6)
== END | disposition home or self-care (01) ==
LOC: LABWHC1 15:54
PROVIDERS: ATTEND Internal Medicine
DX: D72.829 Elevated white blood cell count, unspecified (principal)
CPT/HCPCS: 36415; 85025

== ENCOUNTER 2022-04-04 08:52 | Emergency (ER) | payer MEDICARE ==
[2022-04-04 08:57] VITALS: TEMP 98.1
[2022-04-04] MEDS ORDERED: IOPAMIDOL CONTRAST (ORAL USE) VIAL PO PRN (09:17)
[2022-04-04] MEDS ORDERED: SODIUM CHLORIDE 0.9% 1,000 ML IV STA (09:17)
[2022-04-04] MEDS ORDERED: FAMOTIDINE 20 MG/2 ML VIAL IV STA (09:18)
--- NOTE | 2022-04-04 09:25 | ED ---
General Adult HPI - General Chief complaint: Recheck/Abnormal Lab/Rx Stated complaint: Irregular labs-Sent by PCP Time Seen by Provider: 04/04/22 09:05 Source: patient, family, RN/MD (I did speak with Dr. aponte), RN notes reviewed Mode of arrival: ambulatory Limitations: no limitations - History of Present Illness Initial comments: Patient is a pleasant 86-year-old female presenting to the emergency department with family with concerns for elevated liver enzymes. Patient was recently at the hospital. Patient had follow-up test and elevated liver enzymes were noted. Patient admits to having right-sided abdominal discomfort over the past couple weeks. Patient has lost up to 14 pounds over the past couple of weeks. No nausea or vomiting. Patient does have decreased appetite. There has been some mild confusion however this has been progressive over the past couple of years and patient has seen her neurologist and was diagnosed with early stages of dementia. - Related Data Home Medications Medication Instructions Recorded Confirmed Vit C/E/Zn/Coppr/Lutein/Zeaxan 1 cap PO BID 01/28/19 04/04/22 [Preservision Areds 2 Softgel] Aspirin [Adult Low Dose Aspirin EC] 81 mg PO HS 05/17/20 04/04/22 Propylene Glycol/Peg 400/Pf 1 drop BOTH EYES BID 06/20/20 04/04/22 [Systane 0.3-0.4% Eye Drops] Apixaban [Eliquis] 2.5 mg PO BID 10/04/21 04/04/22 metFORMIN HCL 500 mg PO DAILY 10/04/21 04/04/22 Ferrous Gluconate 324 mg PO Q48H 04/04/22 04/04/22 Previous Rx's Medication Instructions Recorded Atorvastatin [Lipitor] 40 mg PO DAILY #90 tab 05/20/20 Metoprolol Tartrate [Lopressor] 25 mg PO BID #180 tab 05/20/20 Nitroglycerin Sl Tabs [Nitrostat] 0.4 mg SUBLINGUAL Q5M PRN #25 tab 05/20/20 Allergies Allergy/AdvReac Type Severity Reaction Status Date / Time naproxen AdvReac Unknown DR Adams 04/04/22 13:25 INSTRUCTED NOT TO TAKE Review of Systems ROS Statement: Those systems with pertinent positive or pertinent negative responses have been documented in the HPI. ROS Other: All systems not noted in ROS Statement are negative. Constitutional: Denies: fever Eyes: Denies: eye pain ENT: Denies: ear pain Respiratory: Denies: cough Cardiovascular: Denies: chest pain Endocrine: Denies: fatigue Gastrointestinal: Reports: as per HPI, abdominal pain. Denies: vomiting Genitourinary: Denies: dysuria Musculoskeletal: Denies: back pain Skin: Denies: rash Neurological: Denies: weakness Psychiatric: Reports: as per HPI Past Medical History Past Medical History: Coronary Artery Disease (CAD), Cancer, Diabetes Mellitus, Hyperlipidemia Additional Past Medical History / Comment(s): HEART MURMUR, CALCIFIED HEART VALVE., HX OF SKIN CANCER, STOMACH ULCER (50 YRS AGO)., STATES "LOW KIDNEY FUNCTION", anemia History of Any Multi-Drug Resistant Organisms: None Reported Past Surgical History: Appendectomy, Heart Catheterization, Heart Catheterization With Stent, Tonsillectomy Additional Past Surgical History / Comment(s): Wesley Cataract surgery. cardiac stent x 2. COLONSCOPY. EGD Past Anesthesia/Blood Transfusion Reactions: No Reported Reaction Date of Last Stent Placement:: 05/19/20 Past Psychological History: Anxiety Smoking Status: Former smoker Past Alcohol Use History: None Reported Past Drug Use History: None Reported - Past Family History Mother Family Medical History: No Reported History Additional Family Medical History / Comment(s): age 64 yrs old. Father Family Medical History: CVA/TIA, Rheumatoid Arthritis (RA) Additional Family Medical History / Comment(s): CVA at age 49,2nd CVA age 52 Sister(s) Family Medical History: Cancer, Diabetes Mellitus, Rheumatoid Arthritis (RA) Additional Family Medical History / Comment(s): PACEMAKER, STENTS, CLL, RUPTURED ANEURYSM, (one sister had colon,breast,mouth [place]) General Exam Limitations: no limitations General appearance: alert, in no apparent distress Head exam: Present: normocephalic Eye exam: Present: normal appearance Neck exam: Present: normal inspection Respiratory exam: Present: normal lung sounds bilaterally Cardiovascular Exam: Present: regular rate, normal rhythm GI/Abdominal exam: Present: soft, tenderness (Mild right-sided tenderness), normal bowel sounds. Absent: distended, guarding, rebound, rigid, pulsatile mass Extremities exam: Present: normal inspection Neurological exam: Present: alert Psychiatric exam: Present: normal affect, normal mood Skin exam: Present: normal color Course Vital Signs 08/11/22 08/11/22 08:53 12:35 Temperature 98.1 F Pulse Rate 103 H 66 Respiratory 18 16 Rate Blood Pressure 129/71 115/89 O2 Sat by Pulse 97 97 Oximetry - Reevaluation(s) Reevaluation #1: 04/04/22 13:56 Case was discussed with Dr. Weaver at [facility], who will accept. Family refuses ambulance and will transfer on their own. They are made aware of recommendations and will be given paperwork. Medical Decision Making - Medical Decision Making Patient reevaluated. Patient and family updated. Case discussed with Dr. Roca with hospitalist group who recommends transfer secondary to no GI consult. Family requests [facility]. - Lab Data Result diagrams: 04/04/22 09:25 04/04/22 09:25 Lab Results 04/04/22 04/04/22 04/04/22 Range/Units 09:25 09:25 09:25 WBC 8.7 (3.8-10.6) k/uL RBC 4.29 (3.80-5.40) m/uL Hgb 13.0 (11.4-16.0) gm/dL Hct 39.4 (34.0-46.0) % MCV 92.0 (80.0-100.0) fL MCH 30.3 (25.0-35.0) pg MCHC 33.0 (31.0-37.0) g/dL RDW 14.6 (11.5-15.5) % Plt Count 332 (150-450) k/uL MPV 8.7 Neutrophils % 68 % Lymphocytes % 14 % Monocytes % 6 % Eosinophils % 9 % Basophils % 1 % Neutrophils # 5.9 (1.3-7.7) k/uL Lymphocytes # 1.2 (1.0-4.8) k/uL Monocytes # 0.5 (0-1.0) k/uL Eosinophils # 0.8 H (0-0.7) k/uL Basophils # 0.1 (0-0.2) k/uL PT 11.9 (9.0-12.0) sec INR 1.1 (<1.2) APTT 25.3 (22.0-30.0) sec Sodium 141 (137-145) mmol/L Potassium 4.2 (3.5-5.1) mmol/L Chloride 104 (98-107) mmol/L Carbon Dioxide 20 L (22-30) mmol/L Anion Gap 17 mmol/L BUN 19 H (7-17) mg/dL Creatinine 1.11 H (0.52-1.04) mg/dL Est GFR (CKD-EPI)AfAm 53 (>60 ml/min/1.73 sqM) Est GFR (CKD-EPI)NonAf 46 (>60 ml/min/1.73 sqM) Glucose 220 H (74-99) mg/dL Calcium 9.6 (8.4-10.2) mg/dL Total Bilirubin 1.5 H (0.2-1.3) mg/dL AST 234 H (14-36) U/L ALT 201 H (4-34) U/L Alkaline Phosphatase 1350 H (38-126) U/L Total Protein 7.2 (6.3-8.2) g/dL Albumin 3.9 (3.5-5.0) g/dL Amylase 123 H (30-110) U/L Lipase 816 H (23-300) U/L - Radiology Data Radiology results: report reviewed (CT abdomen and pelvis shows dilation of the intrahepatic biliary duct as well as, so the common bile duct and pancreatic duct. As well as prominence of the ampulla. Recommended ERCP. Cholelithiasis. A letter ultrasound is limited. Common bile duct dilated to 1 cm.) Disposition Clinical Impression: Biliary obstruction Disposition: OTHER INSTITUTION NOT DEFINED Is patient prescribed a controlled substance at d/c from ED?: No Referrals: Jeniffer Aponte MD [Primary Care Provider] - 1-2 days Time of Disposition: 12:53 - Out of Hospital Transfer - Req. Specs Out of Hospital Transfer - Requested Specifics: Other Emergency Center
[2022-04-04 09:36] LABS: Basophils # (A) 0.1 k/uL (0-0.2); Basophils % (A) 1 %; Eosinophils # (A) 0.8 k/uL (0-0.7); Eosinophils % (A) 9 %; HCT 39.4 % (34.0-46.0); Lymphocytes # (A) 1.2 k/uL (1.0-4.8); Lymphocytes % (A) 14 %; MCH 30.3 pg (25.0-35.0); Mean Platelet Volume 8.7; Monocytes # (A) 0.5 k/uL (0-1.0); Monocytes % (A) 6 %; Neutrophils # (A) 5.9 k/uL (1.3-7.7); Neutrophils % (A) 68 %; Platelet Count 332 k/uL (150-450); RBC 4.29 m/uL (3.80-5.40); RDW 14.6 % (11.5-15.5); WBC 8.7 k/uL (3.8-10.6)
[2022-04-04 09:52] LABS: Albumin 3.9 g/dL (3.5-5.0); Calcium 9.6 mg/dL (8.4-10.2); Potassium 4.2 mmol/L (3.5-5.1); Total Bilirubin 1.5 mg/dL (0.2-1.3); Total Protein 7.2 g/dL (6.3-8.2)
[2022-04-04 09:55] LABS: INR 1.1 (<1.2); Partial Thromboplastin Time 25.3 sec (22.0-30.0); Prothrombin Time 11.9 sec (9.0-12.0)
--- NOTE | 2022-04-04 10:10 | US ---
EXAMINATION TYPE: US gallbladder DATE OF EXAM: 04/04/2022 COMPARISON: 11/17/2020 CLINICAL HISTORY: pain, elevated liver enzymes. elevated labs TECHNIQUE: Multiple sonographic images of the right upper quadrant are obtained. Patient has CT order ed following US, patient ate very little today FINDINGS: EXAM MEASUREMENTS: Liver Length: 12.2 cm Gallbladder Wall: not seen CBD: 1.0 cm Right Kidney: 9.2 x 3.8 x 3.6 cm Pancreas: wnl Liver: 4.4 complex cystic structure seen within GB fossa, noted on previous CT Gallbladder: unable to appreciate GB on US, GB is noted on previous CT, after multiple attempts, co uld not see normal appearing GB, possible contracted versus other etiology Evidence for sonographic Mejia's sign: no CBD: slightly dilated if no h/o cholecystectomy and upper limits of normal for age Right Kidney: wnl IMPRESSION: 1. Nondiagnostic assess gallbladder. Gallbladder was not visualized. Correlate with CT scan. 2. Complex cystic structure seen within the liver partially calcified and is similar to recent CT sca n. Common bile duct dilated to 1 cm correlate for a distal CBD stone or obstruction.
--- NOTE | 2022-04-04 12:00 | CT ---
EXAMINATION TYPE: CT abdomen pelvis w con DATE OF EXAM: 04/04/2022 COMPARISON: 10/04/2021 HISTORY: Abdominal pain CT DLP: 574.2 mGycm Automated exposure control for dose reduction was used. CONTRAST: CT scan of the abdomen pelvis is performed with IV Contrast, patient injected with 100 ml mL of Isovu e 300. FINDINGS- LUNG BASES-subsegmental changes at both lung bases. There is a 6 mm subpleural left upper lobe pulmon chris nodule lingular segment incompletely evaluated. Correlate for atelectasis. Cardiac leads are note d. LIVER/GB-within the left lobe of the liver there remains a complicated partially calcified cyst measu ring 3 x 2.6 cm. There also is new mild intrahepatic biliary ductal dilation. Small gallstones seen along the inferior margin of the gallbladder. Gallbladder wall measures roughly 3 mm and is normal.. PANCREAS-pancreatic duct is dilated which is new from prior exam. Prominence in the ampullary region noted. . SPLEEN- No gross abnormality is seen. ADRENALS-nonspecific thickening of the left adrenal gland associated with hyperinflation.. KIDNEYS/BLADDER- no hydronephrosis or nephrolithiasis. Simple appearing left renal cyst. BOWEL-changes of diverticulosis with no CT evidence of diverticulitis.. LYMPH NODES- No greater than 1cm abdominal or pelvic lymph nodes areappreciated. OSSEOUS STRUCTURES-multilevel hypertrophic and degenerative changes grade 1 anterolisthesis L4 on L5. . OTHER- atherosclerotic change of aorta no evidence of aneurysm. IMPRESSION- 1. There is new mild intrahepatic biliary ductal dilation and evidence of cholelithiasis. Extrahepati c common bile duct and pancreatic ducts appear to be prominent in size compatible double duct sign. T here is also mild prominence of the the ampulla. Recommend correlation with either ERCP or MRCP to ex clude possibility of ampullary lesion or sludge within the distal CBD. Additionally, MRI of the pancreas could be obtained to exclude the possibility of a pancreatic lesion . 2. Stable benign partially calcified cystic hepatic lesion. 3. Diverticulosis with no CT evidence of diverticulitis. 4. Cholelithiasis. Gallbladder wall is upper limits of normal. Correlate clinically to exclude cholec ystitis.
[2022-04-04 12:38] VITALS: RESP 16
[2022-04-04 14:31] VITALS: BP 140/80; PULSE 77
== END 2022-04-04 14:31 | disposition other institution (70) ==
LOC: EC 08:52
DX: K83.1 Obstruction of bile duct (principal); E11.9 Type 2 diabetes mellitus without complications; I25.10 Atherosclerotic heart disease of native coronary artery without angina pectoris; Z88.6 Allergy status to analgesic agent; Z79.84 Long term (current) use of oral hypoglycemic drugs; Z79.82 Long term (current) use of aspirin; Z79.01 Long term (current) use of anticoagulants; Z87.891 Personal history of nicotine dependence
CPT/HCPCS: 36415; 80053; 82150; 83690; 85025; 85610; 85730; 76705; 74177; 99285; 96374; 96361; Q9967 ×2